=== PATIENT | male | born 1965 | race African-American/Black ===

== ENCOUNTER 2019-03-02 12:03 | Day surgery (SDC) | payer MEDICARE, OTHER ==
[2019-03-02] MEDS ORDERED: ONDANSETRON 4 MG INJ IV (14:30)
[2019-03-02] MEDS ORDERED: LIDOCAINE 2% (SDV) 5 ML INJ (14:36)
[2019-03-02] MEDS ORDERED: PROPOFOL 60 ML (14:36)
== END 2019-03-02 17:47 | disposition home or self-care (01) ==
LOC: GIL 12:03
DX: K21.9 Gastro-esophageal reflux disease without esophagitis (principal); K29.30 Chronic superficial gastritis without bleeding; D12.5 Benign neoplasm of sigmoid colon; I10 Essential (primary) hypertension; E78.5 Hyperlipidemia, unspecified
CPT/HCPCS: 43239; 88305; 88312